=== PATIENT | female | born 1950 | race Caucasian/White ===

== ENCOUNTER → 2018-10-20 | Outpatient (CLI) | payer MEDICARE, OTHER ==
[~2018-10-20] MED LIST: ALORA0.025 MG/2 TD; AMBIEN 10MG10 MG PO; BACTRIM DS 8001 TAB PO; HCTZ 25MG25 MG PO; LIPITOR 10MG10 MG PO; PAXIL 20MG20 MG PO; TYLENOL W/COD1 UDTAB PO; ZOFRAN ODT4 MG PO; ZYRTEC-D 5 MG-11 TER PO
== END ==
LOC: MC.RAD 07:30
DX: N63.20 Unspecified lump in the left breast, unspecified quadrant (principal)

== ENCOUNTER → 2019-05-21 | Outpatient (CLI) | payer MEDICARE, OTHER | LOC: MC.RAD 08:22 | DX: N63.20 Unspecified lump in the left breast, unspecified quadrant (principal) | CPT/HCPCS: G0279 ==

== ENCOUNTER → 2020-11-03 | Outpatient (CLI) | payer MEDICARE, OTHER | LOC: MC.RAD 12:54 | DX: Z12.31 Encounter for screening mammogram for malignant neoplasm of breast (principal); N64.89 Other specified disorders of breast ==

== ENCOUNTER → 2022-03-24 | Outpatient (CLI) | payer MEDICARE | LOC: MC.RAD 02-22 11:00 | DX: Z12.31 Encounter for screening mammogram for malignant neoplasm of breast (principal) ==